=== PATIENT | male | born 2005 | race Caucasian/White ===

== ENCOUNTER 2024-09-15 15:23 | Emergency (ER) | payer BC ==
[~2024-09-15] VITALS: Ht 177.8 cm; Wt 79.0 kg
[2024-09-15 15:30] VITALS: BP 131/69; RESP 17; TEMP 36.6; O2SAT 97
[2024-09-15 15:31] VITALS: PULSE 102; O2SAT 97
[2024-09-15] MEDS ORDERED: ONDA-239 PO (15:58)
[2024-09-15] MEDS: ONDANSETRON 4MG ODT PO ONE (16:08)
== END 2024-09-15 18:34 | disposition home or self-care (01) ==
LOC: ER 15:23
DX: K21.9 Gastro-esophageal reflux disease without esophagitis (principal); Z98.890 Other specified postprocedural states
CPT/HCPCS: 99283; Q0162; Z7610

== ENCOUNTER 2024-09-16 00:53 | Inpatient (IN) | payer BC ==
[~2024-09-16] VITALS: Ht 177.8 cm; Wt 79.4 kg
[~2024-09-16 00:53] MED LIST: ONDA-239 PO
[2024-09-16 00:58] VITALS: O2SAT 97
[2024-09-16] MEDS ORDERED: GLUCAGON,HUMAN RECOMBINANT 1MG/VIAL IM ONE (03:15)
[2024-09-16] MEDS: MAGNESIUM/ALUMINUM HYDROXIDE/SIMETHICONE 30ML UDC PO NR (03:27)
[2024-09-16] MEDS: VISCOUS LIDOCAINE 2% 15 ML UDC MM STA (03:27)
[2024-09-16] MEDS: MAGNESIUM/ALUMINUM HYDROXIDE/SIMETHICONE 30ML UDC PO ONE (03:28)
[2024-09-16 03:31] LABS: HEMATOCRIT. 49.8 % (42.0-52.0); HEMOGLOBIN. 16.4 g/dL (14.0-18.0); MEAN CORPUSCULAR HEMOGLOBIN 29.7 pg (28.0-32.0); MEAN CORPUSCULAR HGB CONC 32.9 g/dL (31.0-37.0); MEAN CORPUSCULAR VOLUME 90.3 fL (80.0-94.0); MEAN PLATELET VOLUME 9.3 fl (7.4-10.4); PLATELET 133 x1000/uL (130-400); RED BLOOD CELL COUNT 5.51 mill/uL (4.7-6.1); RED CELL DISTRIBUTION WIDTH 12.9 % (11.6-14.6); WHITE BLOOD COUNT 5.2 x1000/uL (4.5-11.0)
[2024-09-16 03:33] LABS: DIFFERENTIAL COMMENT 1
[2024-09-16 03:37] LABS: CHLORIDE 102 mEq/L (98-107); POTASSIUM 4.2 mEq/L (3.5-5.1); SODIUM 140 mEq/L (136-145)
[2024-09-16 03:38] LABS: CALCIUM 9.5 mg/dL (8.7-10.4); CARBON DIOXIDE 29 mEq/L (21-32)
[2024-09-16 03:43] LABS: CREATININE 1.3 mg/dL (0.6-1.3); GLUCOSE 103 mg/dL (70-105); UREA NITROGEN BLOOD 15 mg/dL (9-23)
[2024-09-16 03:45] LABS: ALANINE AMINOTRANSFERASE 22 IU/L (10-49); ALBUMIN 4.6 g/dL (3.2-4.8); ASPARTATE AMINOTRANSFERASE 26 IU/L (<34); BILIRUBIN TOTAL 0.5 mg/dL (0.1-1.0); PROTEIN TOTAL 7.9 g/dL (6.0-8.3)
[2024-09-16 05:37] LABS: PLATELET ESTIMATE NORMAL
[2024-09-16 08:00] VITALS: BP 142/76; PULSE 77; RESP 20; TEMP 36.7; O2SAT 96
[2024-09-16 09:36] VITALS: BP 142/76; PULSE 77; RESP 20; TEMP 36.8
[2024-09-16] MEDS ORDERED: SODIUM CHLORIDE 0.9% 1,000 ML IV SCH (11:15)
[2024-09-16] MEDS ORDERED: ACETAMINOPHEN 325MG TABLET PO PRN (11:15)
[2024-09-16] MEDS ORDERED: HYDROCODONE/ACETAMINOPHEN 5/325MG TABLET PO PRN (11:15)
[2024-09-16] MEDS ORDERED: IPRATROPIUM/ALBUTEROL 0.5-3(2.5)MG/3ML NEB NEB PRN (11:15)
[2024-09-16] MEDS: ONDANSETRON HCL 4MG/2ML INJ IV PRN (11:54)
[2024-09-16] MEDS ORDERED: BARIUM SULFATE 176 GM SUSP.RECON ONE (12:56)
[2024-09-16] MEDS ORDERED: EZ-HD SUSPENSION(BARIUM SULFATE 340GM) PO ONE (12:56)
[2024-09-16] MEDS ORDERED: SIMETHICONE/SOD BICARB/CIT AC 1 EACH GRAN.EF.PK ONE (12:57)
[2024-09-16] MEDS: PANTOPRAZOLE SODIUM 40 MG/VIAL IV SCH (13:00)
[2024-09-16] MEDS: ENOXAPARIN 40MG/0.4ML SYR SUBCUT SCH (13:00)
[2024-09-16 13:50] LABS: CLARITY URINE CLOUDY (CLEAR); COLOR URINE YELLOW (YELLOW); GLUCOSE URINE NEGATIVE (NEGATIVE); KETONES URINE 1+ (NEGATIVE); LEUKOCYTE ESTERASE URINE NEGATIVE (NEGATIVE); NITRITE URINE NEGATIVE (NEGATIVE); OCCULT BLOOD URINE NEGATIVE (NEGATIVE); PROTEIN URINE NEGATIVE (NEGATIVE); UROBILINOGEN URINE 0.2 E.U./dL (0.2-1.0)
[2024-09-16 13:57] LABS: *AMPHETAMINES SCREEN URINE NEGATIVE (NEGATIVE); *BARBITURATES SCREEN URINE NEGATIVE (NEGATIVE); *BENZODIAZEPINES SCREEN URINE NEGATIVE (NEGATIVE); *COCAINE SCREEN URINE NEGATIVE (NEGATIVE); METHADONE URINE SCREEN NEGATIVE (NEGATIVE); OPIATES URINE SCREEN NEGATIVE (NEGATIVE)
[2024-09-16 13:58] LABS: CANNABINOID URINE SCREEN NEGATIVE (NEGATIVE); ECSTASY MDMA SCREEN URINE NEGATIVE (NEGATIVE); PHENCYCLIDINE URINE SCREEN NEGATIVE (NEGATIVE)
[2024-09-16 14:04] LABS: SQUAMOUS EPITHELIAL CELL URINE FEW /lpf (RARE/1+)
[2024-09-16 14:05] LABS: RBC URINE 0-2 /hpf (0-2); WBC URINE 0-2 /hpf (0-2); YEAST URINE NONE SEEN
[2024-09-16 14:06] LABS: AMORPHOUS SEDIMENT URINE 1+ /lpf; BACTERIA URINE 2+
[2024-09-16] MEDS: LORAZEPAM 0.5MG TABLET PO NR (15:51)
[2024-09-16] MEDS ORDERED: NALOXONE HCL 0.4MG/ML VIAL IV PRN (16:15)
[2024-09-16] MEDS ORDERED: ZOLPIDEM TARTRATE 5MG TABLET PO PRN (21:00)
== END 2024-09-16 17:40 | disposition left against medical advice (07) | DRG 392 ==
LOC: ER 00:53 → 6EST 04:26 → EDBEDREQ 05:10 → EDBEDREQTM 05:10 → EDBEDREQ 05:11
PROVIDERS: ADMIT Internal Medicine; ATTEND Internal Medicine
DX: R13.10 Dysphagia, unspecified (principal); Z53.29 Procedure and treatment not carried out because of patient's decision for other reasons; F41.9 Anxiety disorder, unspecified
CPT/HCPCS: 36415; 70360; 71045; 74220; 80053; 80305; 81003; 85025; 99285; J1650; J2405; J2470; J7517